=== PATIENT | female | born 1985 | race Caucasian/White ===

== ENCOUNTER 2017-11-14 08:08 | Inpatient (IN) | payer MEDICAID ==
[2017-11-14] VITALS (34 sets, daily range): BP systolic 49–115; BP diastolic 33–72; PULSE 62–87; RESP 16–19; TEMP 98–98.3
[~2017-11-14] VITALS: Ht 162.6 cm; Wt 64.0 kg
[2017-11-14] MEDS ORDERED: LACTATED RINGER'S 1000 ML INJ 1,000 ML IV SCH (09:01)
[2017-11-14] MEDS ORDERED: LACTATED RINGER'S 1000 ML INJ 1,000 ML IV PRN (09:01)
--- NOTE | 2017-11-14 09:10 | PD ---
HPI Chief Complaint SROM Date Seen: November 14, 2017 Travel History International Travel<30 Days: No Contact w/Intl Traveler<30Days: No Known Affected Area: No History of Present Illness HPI The patient is a pleasant and 39/5 weeks gestation who presents to OB triage after leakage of fluid early this morning at 06:30. The patient states she was up to use the restroom and noted clear leakage of fluid that was distinctly different from voiding. She endorses irregular contractions. Reports good movements. She states her has been uncomplicated thus far. She denies any significant medical history. She is GBS negative. Para: 3023 : 6 History Past Medical History Narrative Medical Reportedly healthy Obstetric History Obstetric History 3 prior term vaginal deliveries, reportedly uncomplicated courses with uncomplicated deliveries 2 prior early miscarriages Past Surgical History Narrative Surgical D&C 1 with one of the spontaneous AB's Family History Family History: Negative Social History Alcohol Use: No Tobacco Use: No Substance Abuse: No Allergies-Medications (Allergen,Severity, Reaction): Coded Allergies: No Known Allergies (Unverified Adverse Reaction, Unknown, 06/01/17) Home Meds Active Scripts W/O Vit A W/ Fe Carbo Pack (Citranatal 90 Dha Pack) 90-1 & 300 Mg Pack Prov:George Rene MD 06/01/17 Review of Systems Except as stated in HPI: all other systems reviewed are Neg Physical Exam Narrative GENERAL: Well-nourished, well-developed patient. SKIN: Warm and dry. HEAD: Normocephalic and atraumatic. EYES: No scleral icterus. No injection or drainage. ENT: No nasal drainage noted. Mucous membranes pink. Airway patent. NECK: Supple, trachea midline. No JVD. CARDIOVASCULAR: Regular rate and rhythm without murmurs, gallops, or rubs. RESPIRATORY: Breath sounds equal bilaterally. No accessory muscle use. ABDOMEN/GI: Abdomen soft, non-tender, bowel sounds present, no rebound, no guarding Gravid to 39 weeks size GENITOURINARY: External Genitalia: intact and normal in appearance Cervix: [-] Dilatation: 4cm Effacement: 90% Station: -2 Presentation: [-] Membranes: [-] Uterine Contractions: q2-3 minutes FHT's: Category: I Baseline: 130s Reactive: +accels Variability: moderate Decels: none noted EXTREMITIES: No cyanosis or edema. BACK: Nontender without obvious deformity. No CVA tenderness. NEUROLOGICAL: Awake and alert. Motor and sensory grossly within normal limits. Normal speech. Data Data Vital Signs Reviewed: Yes Orders Orders Ob (2e) Additional Admit Info (11/14/17 08:59) Admit To Inpatient (11/14/17 ) Code Status (11/14/17 09:01) Vital Signs (Adult) .Per protocol (11/14/17 09:) Activity Oob Ad Shelly (11/14/17 09:01) Heart (11/14/17 09:01) Amnioinfusion (11/14/17 09:01) Urinary Catheter Management .ONCE (11/14/17 09:) Diet Liquid (11/14/17 Breakfast) Lactated Ringer's 1000 Ml Inj (Lr 1000 M (11/14/17 09:01) Lactated Ringer's 1000 Ml Inj (Lr 1000 M (11/14/17 09:01) Sodium Chlorid 0.9% 500 Ml Inj (Ns 500 M (11/14/17 09:15) Sodium Chlor 0.9% 1000 Ml Inj (Ns 1000 M (11/14/17 09:21) Lidocaine 1% Inj (50 Ml) (Xylocaine 1% I (11/14/17 09:15) Citric Acid-Sodium Citrate Liq (Bicitra (11/14/17 09:15) Fentanyl Inj (Fentanyl Inj) (11/14/17 09:15) Fentanyl Inj (Fentanyl Inj) (11/14/17 09:15) Complete Blood Count With Diff (11/14/17 09:01) Hold Clot (11/14/17 09:01) Abo/Rh Blood Type (11/14/17 09:01) Urinalysis - C+S If Indicated (11/14/17 09:01) Ob/Psych Drug Screen, Urine (11/14/17 09:01) Resp Oxygen Non Rebreathe Mask (11/14/17 ) ^ Epidural / Intrathecal Infus (11/14/17 09:01) Oxytocin 30 Units-500ml Premix (Pitocin (11/14/17 09:15) Lidocaine 1% Inj (50 Ml) (Xylocaine 1% I (11/14/17 09:15) Light Mineral Oil (Muri-Lube Oil) (11/14/17 09:15) Inpatient Certification (11/14/17 ) [facility] Medical Record Reviewed: Yes Plan 32 year old at 39/5 weeks gestation being admitted to L&D s/p SROM. 1. IUP - Category I tracing - Cervix: /-2 - Contractions q2-3 minutes - GBS negative - Patient desiring epidural - Continue expectant management Augusto Alexander Dr., MD R2 November 14, 2017 09:10
[2017-11-14 09:11] LABS: BILIRUBIN, URINE NEG (NEG); BLOOD, URINE NEG (NEG); GLUCOSE,URINE NEG (NEG); KETONE, URINE NEG (NEG); MUCUS URINE FEW /lpf (OCC); NITRITE,URINE NEG (NEG); SQUAMOUS EPITHELIAL CELL URINE 1 /hpf (0-5); URINE COLOR YELLOW (YELLW/STRAW); URINE LEUKOCYTE ESTERASE NEG (NEG)
[2017-11-14] MEDS ORDERED: SODIUM CHLORID 0.9% 500 ML INJ 500 ML IV PRN (09:15)
[2017-11-14] MEDS ORDERED: LIDOCAINE HCL 1% 50 ML VIAL INFIL PRN (09:15)
[2017-11-14] MEDS ORDERED: MINERAL OIL 10 ML VIAL TOPICAL PRN (09:15)
[2017-11-14] MEDS ORDERED: CITRIC ACID-SODIUM CITRATE LIQ 30 ML UDC PO SCH (09:15)
[2017-11-14] MEDS ORDERED: LIDOCAINE HCL 1% 50 ML VIAL I-DERMAL PRN (09:15)
[2017-11-14] MEDS ORDERED: OXYTOCIN 30 UNITS-500ML PREMIX 500 ML IV ONE (09:15)
[2017-11-14] MEDS ORDERED: SODIUM CHLOR 0.9% 1000 ML INJ 1,000 ML IV PRN (09:21)
[2017-11-14] MEDS ORDERED: fentaNYL 2MCG-BUPIV 0.125% INJ 100 ML ONE (09:27)
[2017-11-14] MEDS ORDERED: ePHEDrine/NS 25 MG/5 ML SYRINGE ONE (09:28)
[2017-11-14 10:19] LABS: AUTOMATED NEUTROPHIL # 7.6 TH/MM3 (1.8-7.7); BASOPHIL % 0.3 % (0.0-2.0); EOSINOPHIL % 0.3 % (0.0-4.0); HEMATOCRIT 32.2 % (35.0-46.0); HEMOGLOBIN 10.6 GM/DL (11.6-15.3); LYMPH % 13.9 % (9.0-44.0); LYMPHOCYTE # 1.3 TH/MM3 (1.0-4.8); MEAN CELL VOLUME 81.7 FL (80.0-100.0); MEAN PLATELET VOLUME 9.1 FL (7.0-11.0); MONO % 6.7 % (0.0-8.0); MONOCYTE # 0.6 TH/MM3 (0-0.9); NEUT % 78.8 % (16.0-70.0); PLATELET COUNT 176 TH/MM3 (150-450); RED BLOOD COUNT 3.95 MIL/MM3 (4.00-5.30); RED CELL DISTRIBUTION WIDTH 14.7 % (11.6-17.2); WHITE BLOOD COUNT 9.6 TH/MM3 (4.0-11.0)
[2017-11-14] MEDS ORDERED: LIDOCAINE HCL 1% PF 5 ML AMPULE ONE (10:56)
[2017-11-14] MEDS ORDERED: OXYTOCIN 30 UNITS-500ML PREMIX 500 ML IV PRN (11:30)
--- NOTE | 2017-11-14 11:40 | PD.LABORPN ---
Subjective Subjective Patient given epidural with slight decrease in BP. Objective Vital Signs Vital Signs Date Time Temp Pulse Resp B/P (MAP) Pulse Ox O2 Delivery O2 Flow Rate FiO2 11/14/17 11:15 84 87/44 (58) 11/14/17 11:15 78 11/14/17 11:10 78 11/14/17 11:10 103/55 (71) 11/14/17 11:05 90/58 (69) 11/14/17 11:05 74 11/14/17 11:00 81 108/72 (84) Objective Pelvic Exam: Dilatation: 5 Effacement: 80 Station: -1 Presentation: vertex Membranes: ruptured Uterine Contractions: present FHT's: Category: 2 Baseline: 140 Reactive: yes Variability:moderate Decels: 1 decel during cervical check Assessment/Plan Problem List: (1) 39 weeks gestation of ICD Codes: Z3A.39 - 39 weeks gestation of Status: Acute Assessment and Plan inadequate labor progression with only 1cm change in appx 3 hrs -c/w IVF -Start pit at 07-04-29 -ephedrine given -Category 1 tracing -Patient placed on left side to improve BP after epidural, repeat BP normalizing at 108/60 Juan Treadwell MD, R1 November 14, 2017 11:40
[2017-11-14] MEDS ORDERED: NO SYSTEM NARCOTICS PRN (12:15)
[2017-11-14] MEDS ORDERED: ePHEDrine/NS 25 MG/5 ML SYRINGE IV PUSH PRN (12:15)
[2017-11-14] MEDS ORDERED: DO NOT ADMINISTER ANTICOAGULANTS PRN (12:15)
[2017-11-14] MEDS ORDERED: fentaNYL 2MCG-BUPIV 0.125% 100 ML EPIDURAL PRN (12:15)
[2017-11-14] MEDS ORDERED: MEASLES, MUMPS, RUBELLA VACCINE 0.5 ML VIAL SQ ONE (16:00)
[2017-11-14] MEDS ORDERED: DIPHTH/TETANUS/ACEL PERTUSSIS (BOOSTER) 0.5 ML VIAL/PFS IM ONE (16:00)
--- NOTE | 2017-11-14 17:06 | PD.OB.DELI ---
Weeks gestation: 39 Pt started active labor?: Yes Medical induction of labor?: Yes Artificial rupture of membrane: No Anesthesia: Epidural Episiotomy: None Vaginal Delivery: Normal Presentation: Occiput anterior Nuchal Cord: None Delayed cord clamping (45 sec): Yes Infant: Male Delivery date: November 14, 2017 Delivery time: 16:53 One Minute : 9 Ten Minute : 9 Weight: 3520g Placenta: Spontaneous delivery Laceration: No lacerations Estimated blood loss: 100 Juan Treadwell MD, R1 November 14, 2017 17:06
[2017-11-14] MEDS ORDERED: ONDANSETRON ODT 4 MG TAB PO PRN (17:15)
[2017-11-14] MEDS ORDERED: ZOLPIDEM TARTRATE 5 MG TAB PO PRN (17:15)
[2017-11-14] MEDS ORDERED: SODIUM CHLORIDE 0.9% FLUSH 10 ML FLUSH IV FLUSH PRN (17:15)
[2017-11-14] MEDS ORDERED: oxyCODONE/ACETAMINOPHEN 5 MG/325 MG TAB PO PRN ×2 (17:15)
[2017-11-14] MEDS ORDERED: OXYTOCIN 30 UNITS-500ML PREMIX 500 ML IV SCH (17:15)
[2017-11-14] MEDS ORDERED: ACETAMINOPHEN 325 MG TAB PO PRN (17:15)
[2017-11-14] MEDS ORDERED: ALUMINUM/MAGNESIUM/SIMETH 30 ML CUP PO PRN (17:15)
[2017-11-14] MEDS ORDERED: BENZOCAINE 20% TOPICAL SPRAY 60 ML CAN TOPICAL PRN (17:15)
[2017-11-14] MEDS ORDERED: WITCH HAZEL 50%/GLYCERIN 12.5% 40 PAD JAR TOPICAL PRN (17:15)
[2017-11-14] MEDS ORDERED: MEPERIDINE HCL 50 MG/ML VIAL ONE (18:15)
[2017-11-14] MEDS ORDERED: SODIUM CHLORIDE 0.9% FLUSH 10 ML FLUSH IV FLUSH SCH (21:00)
[2017-11-15] MEDS: IBUPROFEN 800 MG TAB PO PRN ×2 (00:16→08:53)
[2017-11-15 07:18] VITALS: BP 94/59; PULSE 59; RESP 16; TEMP 98.5; O2SAT 100
[2017-11-15 08:03] VITALS: BP 99/59; PULSE 59; RESP 16; TEMP 98.5; O2SAT 100
--- NOTE | 2017-11-15 08:37 | HHI.OB ---
Subjective Post Day: 1 Remarks Patient seen and examined this morning. AFVSS overnight. day #1. Pain well controlled. Decreased lochia. Denies dysuria. No breast tenderness. She is feeding the baby via bottle. Appetite good. No nausea or vomiting. Positive flatus. No bowel movement yet. Ambulating well. Denies calf pain, shortness of breath, or cough. She otherwise has no other complaints or concerns this morning. Objective Vitals/I&O Vital Signs Date Time Temp Pulse Resp B/P (MAP) Pulse Ox O2 Delivery O2 Flow Rate FiO2 11/15/17 07:18 98.5 59 16 94/59 (71) 100 11/14/17 21:00 98.0 77 18 109/69 (82) 11/14/17 18:25 16 11/14/17 18:15 78 113/64 (80) 11/14/17 18:00 70 110/62 (78) 11/14/17 17:45 66 106/64 (78) 11/14/17 17:44 18 11/14/17 17:26 98.3 11/14/17 17:25 18 11/14/17 17:11 69 102/46 (64) 11/14/17 16:55 19 11/14/17 16:00 75 106/60 (75) 11/14/17 15:00 75 106/60 (75) 11/14/17 14:30 72 114/67 (83) 11/14/17 14:16 87 112/65 (81) 11/14/17 14:15 18 11/14/17 14:15 98.2 11/14/17 14:00 86 92/60 (71) 11/14/17 13:30 76 90/65 (73) 11/14/17 13:00 70 102/59 (73) 11/14/17 12:45 80 100/56 (71) 11/14/17 12:15 66 98/52 (67) 11/14/17 12:00 70 115/72 (86) 11/14/17 11:55 74 107/56 (73) 11/14/17 11:50 84 100/64 (76) 11/14/17 11:50 73 11/14/17 11:45 78 69/58 (62) 5/14/18 11:45 77 11/14/17 11:35 71 11/14/17 11:30 72 108/61 (77) 11/14/17 11:30 75 11/14/17 11:25 63 106/55 (72) 11/14/17 11:25 62 11/14/17 11:23 62 102/65 (77) 11/14/17 11:21 68 49/33 (38) 11/14/17 11:20 83 11/14/17 11:15 84 87/44 (58) 11/14/17 11:15 78 11/14/17 11:15 98.2 19 11/14/17 11:10 78 11/14/17 11:10 103/55 (71) 11/14/17 11:05 90/58 (69) 11/14/17 11:05 74 11/14/17 11:00 81 108/72 (84) Objective Remarks GENERAL: Well-nourished, well-developed patient. CARDIOVASCULAR: Regular rate and rhythm without murmurs, gallops, or rubs. RESPIRATORY: Breath sounds equal bilaterally. No accessory muscle use. ABDOMEN/GI: Abdomen soft, non-tender. Fundus: Firm, non-tender at umbilicus. GENITOURINARY: Light bleeding. EXTREMITIES: No cyanosis or edema, non-tender, without signs of DVT. Medications and IVs Current Medications Medications (Trade) Dose Ordered Sig/Bryant Route Start Time Stop Time Status Last Admin (Xylocaine 1% Inj (50 ml)) 0.1 ml UNSCH X1 PRN I-DERMAL 11/14/17 09:15 11/17/17 09:14 (Bicitra Liq) 30 ml CLIENT PROJECT COORDINATOR PO 11/14/17 09:15 11/18/17 09:14 (Xylocaine 1% Inj (50 ml)) 10 ml UNSCH X1 PRN INFIL 11/14/17 09:15 11/16/17 09:14 (Muri-Lube Oil) 10 ml UNSCH PRN TOPICAL 11/14/17 09:15 Oxytocin 500 ml @ 0 mls/hr TITRATE PRN IV 11/14/17 11:30 11/14/17 11:45 ([facility] [place] [facility] Information) No systemic narcotics to be given except... UNSCH PRN .XX 11/14/17 12:15 11/15/17 12:14 ([facility] [place] Nursing Information) DO NOT ADMINISTER ANY ANTICOAGUL... UNSCH PRN .XX 11/14/17 12:15 11/15/17 12:14 Fentanyl/ Bupivacaine HCl 100 ml @ 0 mls/hr TITRATE PRN EPIDURAL 11/14/17 12:15 (ePHEDrine/NS 25 MG/5 ML SYR) 10 mg UNSCH PRN IV PUSH 11/14/17 12:15 11/15/17 12:14 (NS Flush) 2 ml BID IV FLUSH 11/14/17 21:00 (NS Flush) 2 ml UNSCH PRN IV FLUSH 11/14/17 17:15 (Tylenol) 650 mg Q4H PRN PO 11/14/17 17:15 (Motrin) 800 mg Q8H PRN PO 11/14/17 17:15 11/15/17 00:16 (Percocet 5-325 Mg) 1 tab Q4H PRN PO 11/14/17 17:15 (Percocet 5-325 Mg) 2 tab Q4H PRN PO 11/14/17 17:15 (Americaine 20% Top Spr) 1 spray Q4H PRN TOPICAL 11/14/17 17:15 (Tucks Pads) 1 applic QID PRN TOPICAL 11/14/17 17:15 (Maritza-Colace) 2 tab Q12H PRN PO 11/14/17 17:15 (Ambien) 5 mg HS PRN PO 11/14/17 17:15 (Mag-Al Plus Susp Liq) 15 ml Q8H PRN PO 11/14/17 17:15 (Zofran Odt) 4 mg Q6H PRN PO 11/14/17 17:15 Assessment/Plan Problem List: (1) 39 weeks gestation of ICD Codes: Z3A.39 - 39 weeks gestation of Status: Acute Plan: 32 year old PPD#1. 1. Care - AFVSS - Encouraged OOB, as tolerated - Motrin prn pain - Advised pelvic rest x 6 weeks - bottle feeding - Will f/u with OB provider in 6 weeks -contraception: will discuss with pt tomorrow Juan Treadwell MD, R1 November 15, 2017 08:37
[2017-11-15] MEDS: DOCUSATE SODIUM 50 MG/SENNA 8.6 MG TAB PO PRN ×2 (08:52→20:30)
[2017-11-15 20:00] VITALS: BP 98/67; PULSE 80; RESP 18; TEMP 97.6; O2SAT 96
[2017-11-16] MEDS: IBUPROFEN 800 MG TAB PO PRN (02:27)
--- NOTE | 2017-11-16 08:11 | HHI.OB ---
Subjective Post Day: 2 Remarks Patient seen and examined this morning. AFVSS overnight. day #2. Pain minimal. Decreased lochia. Denies dysuria. No breast tenderness. . Appetite good. No nausea or vomiting. Positive flatus. Positive bowel movement. Ambulating well. Denies calf pain, shortness of breath, or cough. She otherwise has no other complaints or concerns this morning. Denies dizziness, XIONG, or CP. Objective Vitals/I&O Vital Signs Date Time Temp Pulse Resp B/P (MAP) Pulse Ox O2 Delivery O2 Flow Rate FiO2 11/15/17 20:00 97.6 80 18 98/67 (37) 96 Objective Remarks GENERAL: Well-nourished, well-developed patient. CARDIOVASCULAR: Regular rate and rhythm without murmurs, gallops, or rubs. RESPIRATORY: Breath sounds equal bilaterally. No accessory muscle use. ABDOMEN/GI: Abdomen soft, non-tender. Fundus: Firm, non-tender at umbilicus. GENITOURINARY: Light bleeding. EXTREMITIES: No cyanosis or edema, non-tender, without signs of DVT. Medications and IVs Current Medications Medications (Trade) Dose Ordered Sig/Bryant Route Start Time Stop Time Status Last Admin (Xylocaine 1% Inj (50 ml)) 0.1 ml UNSCH X1 PRN I-DERMAL 11/14/17 09:15 11/17/17 09:14 (Bicitra Liq) 30 ml CAR WORKER HELPER PO 11/14/17 09:15 11/18/17 09:14 (Xylocaine 1% Inj (50 ml)) 10 ml UNSCH X1 PRN INFIL 11/14/17 09:15 11/16/17 09:14 (Muri-Lube Oil) 10 ml UNSCH PRN TOPICAL 11/14/17 09:15 Oxytocin 500 ml @ 0 mls/hr TITRATE PRN IV 11/14/17 11:30 11/14/17 11:45 Fentanyl/ Bupivacaine HCl 100 ml @ 0 mls/hr TITRATE PRN EPIDURAL 11/14/17 12:15 (NS Flush) 2 ml BID IV FLUSH 11/14/17 21:00 (NS Flush) 2 ml UNSCH PRN IV FLUSH 11/14/17 17:15 (Tylenol) 650 mg Q4H PRN PO 11/14/17 17:15 (Motrin) 800 mg Q8H PRN PO 11/14/17 17:15 11/16/17 02:27 (Percocet 5-325 Mg) 1 tab Q4H PRN PO 11/14/17 17:15 (Percocet 5-325 Mg) 2 tab Q4H PRN PO 11/14/17 17:15 (Americaine 20% Top Spr) 1 spray Q4H PRN TOPICAL 11/14/17 17:15 (Tucks Pads) 1 applic QID PRN TOPICAL 11/14/17 17:15 11/15/17 08:54 (Maritza-Colace) 2 tab Q12H PRN PO 11/14/17 17:15 11/15/17 20:30 (Ambien) 5 mg HS PRN PO 11/14/17 17:15 (Mag-Al Plus Susp Liq) 15 ml Q8H PRN PO 11/14/17 17:15 (Zofran Odt) 4 mg Q6H PRN PO 11/14/17 17:15 Assessment/Plan Problem List: (1) 39 weeks gestation of ICD Codes: Z3A.39 - 39 weeks gestation of Status: Acute Plan: 32 year old PPD#2. 1. Care - AFVSS - Encouraged OOB, as tolerated - Motrin prn pain - Advised pelvic rest x 6 weeks - bottle feeding - Will f/u with OB provider in 6 weeks -contraception: pt stated she will be scheduling tubal ligation with her OB doctor Discharge Planning plan to be discharge today Juan Treadwell MD, R1 November 16, 2017 08:11
[2017-11-16] MEDS ORDERED: IBUP1TAB7 PO (08:12)
--- NOTE | 2017-11-16 08:33 | HHI.DCPOC ---
Discharge Care Plan Diagnosis: (1) care following vaginal delivery Report Symptoms to Your Doctor -Temperature above 100.5 degrees -Redness, of incision or excessive or foul smelling drainage -Unusual pain or calf pain -Increased vaginal bleeding -Painful or difficulty urinating -Feelings of extreme sadness or anxiety after 2 weeks Goals to Promote Your Health * To maintain your health at the optimal level, follow-up with your OB provider within 6 weeks after hospital discharge. Directions to Meet Your Goals Take your medications as prescribed Follow your dietary instruction Follow activity as directed Ensure plenty of rest for recovery Drink fluids for hydration Keep your appointments as scheduled Take your immunizations and boosters as scheduled If your symptoms worsen call your PCP, if no PCP go to Urgent Care Center or Emergency Room Smoking is Dangerous to Your Health. Avoid second hand smoke Call the 24-hour crisis hotline for domestic abuse at Augusto Shannon MD R2 November 16, 2017 08:32
[2017-11-16] MEDS: DOCUSATE SODIUM 50 MG/SENNA 8.6 MG TAB PO PRN (10:02)
== END 2017-11-16 14:27 | disposition home or self-care (01) | DRG 775 ==
LOC: HOBED 08:08 → H2EA 09:04 → H1EA 20:49
PROVIDERS: ADMIT Obstetrics & Gynecology; ATTEND Obstetrics & Gynecology
PROC: 10E0XZZ Delivery of Products of Conception, External Approach (ICD-10-PCS; principal; 2017-11-14)
PROC: 3E033VJ Introduction of Other Hormone into Peripheral Vein, Percutaneous Approach (ICD-10-PCS; 2017-11-14)
PROC: 00HU33Z Insertion of Infusion Device into Spinal Canal, Percutaneous Approach (ICD-10-PCS; 2017-11-14)
PROC: 3E0R3BZ Introduction of Anesthetic Agent into Spinal Canal, Percutaneous Approach (ICD-10-PCS; 2017-11-14)
DX: O80 Encounter for full-term uncomplicated delivery (principal); Z30.09 Encounter for other general counseling and advice on contraception; Z3A.39 39 weeks gestation of pregnancy; Z37.0 Single live birth
CPT/HCPCS: 59025; 80307; 81001; 85025; G0481; J2175; J2590; J7120